=== PATIENT | male | born 1990 | race African-American/Black ===

== ENCOUNTER 2017-06-18 11:54 | Emergency (ER) | payer SELFPAY ==
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
== END 2017-06-18 12:41 | disposition left against medical advice (07) ==
LOC: EDUNIT# → ER 11:54
DX: S16.1XXA Strain of muscle, fascia and tendon at neck level, initial encounter (principal); S00.03XA Contusion of scalp, initial encounter; V89.2XXA Person injured in unspecified motor-vehicle accident, traffic, initial encounter; Y93.89 Activity, other specified; Y92.488 Other paved roadways as the place of occurrence of the external cause; Y99.8 Other external cause status
CPT/HCPCS: 70450-TC; Z7502

== ENCOUNTER 2017-06-19 13:42 | Emergency (ER) | payer SELFPAY ==
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
== END 2017-06-19 14:50 | disposition home or self-care (01) ==
LOC: ER 13:42
DX: S16.1XXA Strain of muscle, fascia and tendon at neck level, initial encounter (principal); F12.90 Cannabis use, unspecified, uncomplicated; V43.62XA Car passenger injured in collision with other type car in traffic accident, initial encounter; Y93.89 Activity, other specified; Y92.488 Other paved roadways as the place of occurrence of the external cause; Y99.8 Other external cause status
CPT/HCPCS: Z7502